=== PATIENT | female | born 1970 | race Hispanic/Latino ===

== ENCOUNTER → 2020-01-24 | Day surgery (SDC) | payer OTHER ==
[~2020-01-24] VITALS: Ht 157.5 cm; Wt 72.1 kg
[~2020-01-24] MED LIST: ATENOLOL50 MG PO; BC POWDER PACK1 EAC1; FENTANYL CITRATE/PF 100MCG/2 ML INJ ONE; FLANAX220 MG PO; GAS RELIEF125 M1 PO; GLUCAGON FOR INJ 1 MG VIAL ONE; HYOSCYAMINE 0.125 MG TAB ONE; LIDOCAINE HCL 2% LOCAL INJ 5 ML SDV VIAL INJ ONE; METOCLOPRAMIDE HCL 10 MG/2ML VIAL ONE; MIDAZOLAM HCL 2 MG/2 ML VIAL ONE; OMEGA 3 FISH O1 EACH; OMEPRAZOLE20 M1 PO; PROPOFOL IV EMULSION 10 MG/ML 20 ML VIAL ONE; VITAMIN D3 COM1 EACH
[2020-01-24 14:30] VITALS: BP 114/78
--- NOTE | 2020-01-24 15:31 | Operative Report ---
DATE OF PROCEDURE: 01/24/2020 SURGEON: Ricky Todd MD PROCEDURES: EGD with biopsies and colonoscopy with polypectomy. INDICATIONS FOR EGD: Upper abdominal pain, nausea, bloating. INDICATIONS FOR COLONOSCOPY: Colorectal cancer screening. MEDICATIONS: The patient was done under MAC, please see anesthesiologist's note. PROCEDURE IN DETAIL: With the patient in the left lateral decubitus position, a flexible fiberoptic Olympus gastroscope was introduced into the esophagus under direct visualization without any difficulty. There was some patchy erythema noted in distal esophagus. Minute tongues of velvety red mucosa were noted to extend proximally from the GE junction and biopsies were obtained to rule out Lopez. The scope was then advanced with ease into the stomach traversing a small sliding hiatal hernia. Mucosa overlying the antrum and the body revealed some patchy erythema and [id number] edema, and biopsies were obtained and sent to stain for H. pylori. A minute submucosal nodule in the antrum was biopsied. Pylorus was of normal contour and shape, was intubated with ease and the scope was advanced all the way to the second portion of the duodenum. The scope was then withdrawn slowly and mucosa overlying the proximal second portion and the duodenal bulb appeared to be within normal limits. The scope was then withdrawn back into the stomach and retroflexed, and the mucosa overlying the fundus and the cardia was grossly unremarkable. The scope was then straightened out, it was subsequently withdrawn, and the patient tolerated the procedure well. IMPRESSION: 1. Distal esophagitis, mild. 2. Rule out Lopez esophagus. 3. Small sliding hiatal hernia. 4. Gastritis, biopsied, biopsies sent to stain for Helicobacter pylori. 5. Antral nodule, biopsied. 6. Rule out sprue. PLAN: Follow up histology. Initiate Protonix 40 mg one p.o. q.a.m. before meals. The patient was then turned around and after adequate lubrication of the anal canal, a flexible fiberoptic Olympus colonoscope was inserted into the rectum with ease and advanced all the way to the cecum. Prep overall was suboptimal, but visualization was fair. The scope was then withdrawn slowly, whatever was visualized mucosa overlying the cecum appeared to be within normal limits. The mucosa overlying the ascending, transverse, and descending grossly was within normal limits. An approximately 8 mm sessile polyp in distal sigmoid colon was removed per hot snare polypectomy. The rectum appeared to be within normal limits. The scope was then retroflexed into the distal rectum and moderate-sized internal hemorrhoids were noted, none of which was actively bleeding. The scope was then straightened out, it was subsequently withdrawn, and the patient tolerated the procedure well. IMPRESSION: 1. Sigmoid colon polyp, hot snared. 2. Internal hemorrhoids, none actively bleeding. PLAN: Follow up histology. Initiate high-fiber, low-fat diet. Initiate high-fiber supplement. The patient might benefit from a followup colonoscopy in 3 to 5 years. Ricky Todd MD [facility] /[id number] cc: Pramod Mack MD
== END | disposition home or self-care (01) ==
LOC: OR 10:00
PROVIDERS: ATTEND Internal Medicine Gastroenterology
DX: K21.00 Gastro-esophageal reflux disease with esophagitis, without bleeding (principal); D12.5 Benign neoplasm of sigmoid colon; K31.7 Polyp of stomach and duodenum; K29.70 Gastritis, unspecified, without bleeding; K44.9 Diaphragmatic hernia without obstruction or gangrene; K64.8 Other hemorrhoids; Z68.29 Body mass index [BMI] 29.0-29.9, adult; K59.09 Other constipation; R14.0 Abdominal distension (gaseous); Z87.442 Personal history of urinary calculi; I10 Essential (primary) hypertension; Z01.810 Encounter for preprocedural cardiovascular examination; Z01.812 Encounter for preprocedural laboratory examination; Z11.59 Encounter for screening for other viral diseases
CPT/HCPCS: 43239; 45385; 93005; J1610; J2001; J2250; J2704; J2765; J3010; U0002; 45378